=== PATIENT | male | born 1965 | race Caucasian/White ===

== ENCOUNTER 2017-04-25 13:02 | Outpatient (CLI) | payer MEDICARE, MEDICAID ==
--- NOTE | 2017-04-25 15:24 | RAD ---
3 VIEWS CERVICAL SPINE: Date: 04/25/17 HISTORY: Cervical radiculopathy. This is follow-up post surgery. FINDINGS: C1 to the cervicothoracic junction is seen on the lateral view. There are postsurgical changes relat ed to anterior cervical fusion with anterior plate and screws transfixing C4-5 and C5-6 levels with associated intradiscal prostheses. There is suggestion of subtle lucency within the most anterior as pect of the C6 vertebral body adjacent to the screws which may be related to the screws and artifact ual as opposed to true loosening. However, given this is a recent postoperative evaluation, continue d follow-up can be performed. No definite hardware complication is seen. There are degenerative odom ges in the cervical spine at the C6-7 and C7-T1 levels with narrowing of the intervertebral disc spa donya and osteophyte formation. No fracture or subluxation is seen. There is minimal soft tissue swell ing anterior to the level of the plate and screws, probably related to postoperative change. IMPRESSION: Postoperative changes related to anterior cervical fusion at the C4 through C6 level. There is mild prevertebral soft tissue swelling anterior to the level of the metallic plate, which is probably rel ated to the recent postsurgical changes. POS: [facility]
== END 2017-04-25 13:03 | disposition home or self-care (01) ==
LOC: TBSIIMAG 13:02
PROVIDERS: ATTEND Neurological Surgery
DX: M54.12 Radiculopathy, cervical region (principal); Z98.1 Arthrodesis status
CPT/HCPCS: 72040

== ENCOUNTER 2017-06-29 09:51 | Emergency (ER) | payer MEDICARE, MEDICAID ==
[2017-06-29 10:22] LABS: #Basophils 0.1 thou/uL (0.0-0.2); #Eosinphils 0.3 thou/uL (0.0-0.7); #Lymphocytes 2.4 thou/uL (1.20-3.40); #Monocytes 0.7 thou/uL (0.11-0.59); #Neutrophils 6.9 thou/uL (1.40-6.50); %Basophils 0.7 % (0.0-1.0); %Eosinophils 2.6 % (0.0-10.0); %Lymphocytes 23.2 % (21.0-51.0); %Monocytes 6.9 % (0.0-10.0); Hematocrit 47.8 % (42.0-52.0); Mean Platelet Volume 6.7 fL (7.4-10.4); Red Blood Cell (RBC) Count 4.95 mill/uL (4.70-6.10); White Blood Cell (WBC) Count 10.4 thou/uL (4.8-10.8)
--- NOTE | 2017-06-29 10:41 | RAD ---
CHEST ONE VIEW: History: Chest pain. Comparison: None. FINDINGS: Lungs are clear. No pneumothorax or effusion. Cardiac silhouette and mediastinal contours are within normal limits. IMPRESSION: No acute intrathoracic abnormality. POS: [facility]
[2017-06-29 10:52] LABS: ALT (SGPT) 20 U/L (8-55); AST (SGOT) 17 U/L (5-34); Alkaline Phosphatase 74 U/L (40-150); Anion Gap 11 mmol/L (10-20); BUN (Urea Nitrogen) 16 mg/dL (8.9-20.6); Bilirubin, Total 0.2 mg/dL (0.2-1.2); CK (CPK) 89 U/L (30-200); Calc. Creatinine Clearance 0 mL/min (70-130); Calcium 10.4 mg/dL (7.8-10.44); Carbon Dioxide 25 mmol/L (22-29); Chloride 107 mmol/L (98-107); Estimated GFR-MDRD 89; Globulin 3.1 g/dL (2.4-3.5); Lipase 26 U/L (8-78); Protein, Total 7.4 g/dL (6.0-8.3)
[2017-06-29 10:55] LABS: Troponin I 0.011 ng/mL (< 0.028)
--- NOTE | 2017-06-29 11:00 | CT ---
CT BRAIN WITHOUT CONTRAST: HISTORY: Headache, pain. FINDINGS: Noncontrast enhanced CT images of the brain obtained. CT images demonstrate previous right frontoparietal craniotomy changes. No evidence of acute intracranial masses, hemorrhages, strokes, or contusions seen. Ventricles are o f normal size. IMPRESSION: No evidence of acute intracranial abnormality is seen. POS: [facility]
[2017-06-29 12:59] LABS: Troponin I Less than 0.010 ng/mL (< 0.028)
[2017-06-29] MEDS ORDERED: cloNIDine 0.1 MG TAB ONE (13:07)
== END 2017-06-29 13:46 | disposition home or self-care (01) ==
LOC: ERS 09:51
DX: R07.9 Chest pain, unspecified (principal); I10 Essential (primary) hypertension; F32.9 Major depressive disorder, single episode, unspecified; F17.210 Nicotine dependence, cigarettes, uncomplicated; Z79.891 Long term (current) use of opiate analgesic
CPT/HCPCS: 70450; 71010; 80053; 82553; 83690; 84484; 85025; 93005; 94760

== ENCOUNTER 2017-07-24 10:24 | Outpatient (CLI) | payer MEDICARE, MEDICAID ==
--- NOTE | 2017-07-24 12:46 | MRI ---
BRAIN MRI WITHOUT CONTRAST: CLINICAL HISTORY: Frequent headaches. COMPARISON: Reference is made to 06/29/[address] FINDINGS: There is normal size of the ventricular system. MR appearance of plagiocephaly is suggested, althoug h this should be further evaluated with clinical exam. There are mild signal abnormalities of the bi lateral cerebral white matter and within the region of the corpus callosum. No intracranial hemorrha gic susceptibility. No acute territorial infarction. There is inferior location of the cerebellar t onsils which maintain a rounded morphology compatible with mild cerebellar tonsillar ectopia. The sk ull base flow voids are patent. IMPRESSION: 1. Nonspecific signal abnormalities within the cerebral hemispheres as well as the corpus callosum. This may be on the basis of demyelinating process such as multiple sclerosis. Followup with contras eulogio imaging may be performed for further assessment. 2. MR evidence to indicate plagiocephaly. 3. Mild cerebellar tonsillar ectopia. POS: [facility]
== END 2017-07-24 10:25 | disposition home or self-care (01) ==
LOC: TBSIIMAG 10:24
PROVIDERS: ATTEND Student in an Organized Health Care Education/Training Program
DX: S09.90XA Unspecified injury of head, initial encounter (principal); R51 Headache; I10 Essential (primary) hypertension; Q04.8 Other specified congenital malformations of brain
CPT/HCPCS: 70551

== ENCOUNTER 2017-08-03 09:53 | Outpatient (CLI) | payer MEDICARE, MEDICAID ==
[2017-08-03] MEDS ORDERED: Gadobenate Dimeglumine 529 MG/1 ML (20ML VIAL) ONE (14:02)
== END 2017-08-03 09:54 | disposition home or self-care (01) ==
LOC: BICMRI 09:53
PROVIDERS: ATTEND Student in an Organized Health Care Education/Training Program
DX: G37.9 Demyelinating disease of central nervous system, unspecified (principal); R51 Headache; R93.0 Abnormal findings on diagnostic imaging of skull and head, not elsewhere classified; M47.892 Other spondylosis, cervical region; Q75.0 Craniosynostosis
CPT/HCPCS: 70553; 72156; A9579

== ENCOUNTER 2017-11-12 11:30 | Emergency (ER) | payer MEDICARE, MEDICAID ==
[2017-11-12] MEDS ORDERED: Morphine 4 MG/ML VIAL ONE (13:09)
[2017-11-12] MEDS ORDERED: methylPREDNISolone Sod Succ/PF 125 MG/2 ML VIAL ONE (13:09)
== END 2017-11-12 14:10 | disposition home or self-care (01) ==
LOC: ERS 11:30
DX: M54.5 Low back pain (principal); I10 Essential (primary) hypertension; F32.9 Major depressive disorder, single episode, unspecified; F17.210 Nicotine dependence, cigarettes, uncomplicated; Z79.899 Other long term (current) drug therapy; X50.9XXA Other and unspecified overexertion or strenuous movements or postures, initial encounter; Y99.0 Civilian activity done for income or pay
CPT/HCPCS: 96372; J2270; J2930

== ENCOUNTER 2017-11-13 10:43 | Outpatient (CLI) | payer MEDICARE, MEDICAID ==
--- NOTE | 2017-11-13 13:30 | MRI ---
LUMBAR SPINE MRI WITHOUT IV CONTRAST: Date: 11/13/17 HISTORY: 51-year-old male with history of radiculopathy of the lumbosacral region. Bilateral leg and back pain . COMPARISON: 08/31/16. TECHNIQUE: Multiplanar, multisequence MRI examination of the lumbar spine is performed. FINDINGS: Stable bilateral renal T2 nodular hyperintensities, evidence for bilateral renal cysts. Conus medulla ris region is unremarkable, terminating at L1. There are generalized disc desiccation changes and lig ament and facet hypertrophic changes. At L1-L2, there is no evidence for canal or foraminal stenosis. There is some focal T1 hypointensity and T2 hyperintensity in the right superior end plate region of L2, evidence for some new Type I end plate changes. Very mild disc bulging at L2-L3 without significant stenosis. At L3-L4, there is some disc bulging with mild lateral recess stenosis, without significant foraminal stenosis. At L4-L5, there is more marked disc bulging somewhat more focally prominent in the right paracentral region with moderate central canal and lateral recess stenosis, and moderate bilateral foraminal sten osis. At L5-S1, there is a left-sided conjoined nerve root. No significant canal or foraminal stenosis. IMPRESSION: New small focus of Type I end plate changes involving the right superior aspect of the L2 superior en d plate. Moderate canal and lateral recess stenosis, worse on the right side at L4-L5. Other findings as above. POS: [facility]
== END 2017-11-13 10:44 | disposition home or self-care (01) ==
LOC: MRI 10:43
PROVIDERS: ATTEND Neurological Surgery
DX: M51.16 Intervertebral disc disorders with radiculopathy, lumbar region (principal); M48.061 Spinal stenosis, lumbar region without neurogenic claudication; M99.83 Other biomechanical lesions of lumbar region
CPT/HCPCS: 72148

== ENCOUNTER 2018-02-07 10:09 | Inpatient (IN) | payer MEDICARE, MEDICAID ==
[2018-02-07 10:52] LABS: #Basophils 0.1 thou/uL (0.0-0.2); #Eosinphils 0.3 thou/uL (0.0-0.7); #Monocytes 0.8 thou/uL (0.11-0.59); %Basophils 0.6 % (0.0-1.0); %Eosinophils 3.4 % (0.0-10.0); %Lymphocytes 24.4 % (21.0-51.0); %Monocytes 10.1 % (0.0-10.0); %Neutrophils 61.5 % (42.0-75.0); Mean Corpuscular HGB CONC 35.2 g/dL (32.0-36.0); Mean Corpuscular Hemoglobin 32.3 pg (27.0-31.0); Mean Corpuscular Volume 91.7 fL (78.0-98.0); Mean Platelet Volume 6.2 fL (7.4-10.4); Platelet Count 217 thou/uL (130-400); RBC Distribution Width 11.7 % (11.5-14.5); Red Blood Cell (RBC) Count 4.95 mill/uL (4.70-6.10); White Blood Cell (WBC) Count 8.1 thou/uL (4.8-10.8)
[2018-02-07 10:59] LABS: Bilirubin Negative (Negative); Blood, Urine Negative (Negative); Clarity CLEAR (Clear); Glucose, Urine (Dipstick) Negative (Negative); Leukocyte Negative (Negative); Nitrite Negative (Negative); Protein, Urine (Dipstick) Negative (Neg-Trace); Specific Gravity, Urine 1.011 (1.002-1.036)
[2018-02-07 11:19] LABS: ALT (SGPT) 66 U/L (8-55); AST (SGOT) 28 U/L (5-34); Acetaminophen Less than 6.0 mcg/mL (10.0-30.0); Albumin 4.4 g/dL (3.5-5.0); Alcohol Less than 10 mg/dL (Less than 10); Alkaline Phosphatase 81 U/L (40-150); Anion Gap 12 mmol/L (10-20); BUN (Urea Nitrogen) 13 mg/dL (8.9-20.6); Bilirubin, Total 0.7 mg/dL (0.2-1.2); Calc. Creatinine Clearance 0 mL/min (70-130); Calcium 9.8 mg/dL (7.8-10.44); Carbon Dioxide 25 mmol/L (22-29); Chloride 106 mmol/L (98-107); Estimated GFR-MDRD 72; Globulin 3.3 g/dL (2.4-3.5); Glucose 106 mg/dL (70-105); Potassium 4.1 mmol/L (3.5-5.1); Protein, Total 7.7 g/dL (6.0-8.3); Salicylate Less than 8.0 mg/dL (15.0-30.0); Sodium 139 mmol/L (136-145)
[2018-02-07 11:20] LABS: Amphetamine Not Detected (NotDetected); Barbiturates Screen Not Detected (NotDetected); Benzodiazepine Screen Not Detected (NotDetected); Cocaine Metabolite Screen Detected (NotDetected); Medtox Control Line Valid? VALID (VALID); Medtox Reader # READER 1; Methadone Not Detected (NotDetected); Methamphetamine Detected (NotDetected); Opiate Screen Not Detected (NotDetected); Oxycodone Screen Not Detected (NotDetected); Phencyclidine (PCP) Not Detected (NotDetected); THC/Cannabinoid Screen Not Detected (NotDetected); Tricyclic Screen Detected (NotDetected)
--- NOTE | 2018-02-07 11:21 | CT ---
CT HEAD NONCONTRAST: CLINICAL INDICATIONS: Altered mental status. COMPARISON: Reference made to 06/29/2017. FINDINGS: Patient motion is present during the exam, which degrades image quality and thus limits assessment. Evidence of a prior right-sided craniotomy. There is parenchymal volume loss. This does result in m ild ex vacuo dilatation of the ventricular system. There is a stable linear oriented focus of gliosi s involving the posterior left frontal lobe, as well as hypoattenuation of the right central semioval e, indicating mild chronic ischemic disease. No intracranial hemorrhage, mass effect, or midline alex ft. No significant interval detrimental change, comparing to the 06/29/2017 exam. IMPRESSION: Stable examination without acute intracranial abnormality identified. POS: [facility]
--- NOTE | 2018-02-07 11:27 | RAD ---
PORTABLE UPRIGHT CHEST 1 VIEW: Date: 02/07/18 HISTORY: 52-year-old male with history of altered mental status. FINDINGS: Monitor leads overlie the chest. No confluent pneumonia, overt edema, or pleural effusion. Anterior c ervical fusion changes. IMPRESSION: No significant acute intrathoracic disease. POS: [facility]
[2018-02-07 20:11] VITALS: BMI 29.9
[2018-02-07] MEDS ORDERED: Ondansetron HCl/PF 4 MG/2 ML Vial IVP PRN ×2 (20:11→20:15)
[2018-02-07] MEDS ORDERED: Ondansetron ODT 4 MG TAB SL PRN (20:11)
[2018-02-07] MEDS ORDERED: Acetaminophen 325 MG TAB PO PRN (20:11)
[2018-02-07] MEDS ORDERED: cloNIDine 0.1 MG TAB PO PRN (20:15)
[2018-02-07] MEDS ORDERED: Ondansetron ODT 4 MG TAB PO PRN (20:15)
[2018-02-07] MEDS ORDERED: hydrALAZINE 20 MG/ML VIAL SLOW IVP PRN (20:15)
[2018-02-07] MEDS ORDERED: Acetaminophen 500 MG TAB PO PRN (20:15)
[2018-02-07] MEDS ORDERED: Lorazepam 2 MG/ML VIAL SLOW IVP PRN (20:15)
[2018-02-07] MEDS: Sodium Chloride 0.9% 1,000 ML IV SCH (21:26)
[2018-02-07] MEDS: Famotidine/PF 20 mg/2ml Vial SLOW IVP SCH (22:15)
--- NOTE | 2018-02-08 00:24 | HP ---
DATE OF ADMISSION: 02/07/2018 PRIMARY CARE PHYSICIAN: Bárbara james. PRIMARY PSYCHIATRIST: Dr. Luis E Alatorre in [place], [place]. CHIEF COMPLAINT: Altered mental status and unresponsiveness. HISTORY OF PRESENT ILLNESS: This is a 52-year-old male who presents to [facility] in transport by EMS personnel after family members found the patient down at home. The patie nt apparently was last seen normal in the last 24 hours; however, has a significant history of drug a buse including cocaine, marijuana, and methamphetamines. The patient apparently was recently dischar ged from inpatient psychiatric care in detox in the [facility] apparently having a relapse according to family members relaying the information to the emergency room personnel. The patient currently o btunded and unable to provide any significant history and most of the history is obtained after revie w of electronic medical records and discussions with the ER attending. The patient presented to the emergency room and noted to be unsteady on his feet, somnolent and only responding to painful stimuli . The patient would open his eyes briefly to his name. In the emergency room, the patient underwent general evaluation including CT of the brain showing no acute intracranial process. The patient rec eived IV fluids, oxygen supplementation and placement of a nasal trumpet. The patient was referred t o the Hospitalist Service for further evaluation. PAST MEDICAL HISTORY: 1. Polysubstance abuse. 2. Cocaine/methamphetamine abuse. 3. Tobacco abuse. 4. Chronic back pain with degenerative joint disease of the lumbar spine. 5. Hypertension. 6. Peripheral neuropathy. PAST SURGICAL HISTORY: 1. Status post eye surgery. 2. Status post plastic plate placement in the scalp. 3. Status post tonsillectomy. 4. Status post cervical spine surgery. CURRENT MEDICATIONS: 1. Amitriptyline 100 mg p.o. at bedtime. 2. Lisinopril 10 mg p.o. daily. 3. Hydroxyzine 25 mg 1-2 tablets p.o. t.i.d. 4. Gabapentin 600 mg 1-1/2 tabs p.o. q.6 hours p.r.n. 5. Strattera 80 mg 1 tab p.o. q.a.m. ALLERGIES: No known drug allergies. FAMILY HISTORY: No inheritable diseases per family report. SOCIAL HISTORY: [facility] [place] [facility] [place] Smokes up to 1-1/2 packs of cigarettes p er day. Positive cocaine, marijuana, and methamphetamine abuse. Recent discharge from inpatient det oxification in [place], [place]. REVIEW OF SYSTEMS: Unobtainable as the patient currently is obtunded and unresponsive. PHYSICAL EXAMINATION: VITAL SIGNS: On admission, blood pressure 122/93, pulse 84, respiratory rate 20, temperature 97.3 de grees Fahrenheit, O2 saturation 95% on room air. GENERAL APPEARANCE: This is a disheveled appearing 52-year-old male, somnolent on the hospital bed w ith nasal trumpet in place. HEENT: Pupils are minimally reactive to light and accommodation. Left medial eye deviation. Opens eyes to name and tracks for 1-2 seconds falling asleep. No conjunctival injection. Nares patent. [place] trumpet and left naris. OP with dry oral mucosa. Multiple missing teeth. Nicotine staining on the tongue. NECK: Supple, no cervical adenopathy, no thyromegaly, no carotid bruits, no JVD appreciated. Cervic al spine with full active and passive range of motion. No meningeal signs appreciated. CHEST: Lungs are clear to auscultation bilaterally. CARDIOVASCULAR: S1, S2, without noted murmur, rub or gallop. ABDOMEN: Rounded, soft, nontender, nondistended. Bowel sounds are positive in all four quadrants. There is no hepatosplenomegaly, no abdominal bruits, no rebound or guarding appreciated. EXTREMITIES: Warm and dry with fair turgor. No clubbing, cyanosis or asymmetric edema appreciated. Pulses palpable distally at the dorsalis pedis, posterior tibial, and popliteal arteries bilaterally . Capillary refill less than 2 seconds. NEUROLOGIC: Opens eyes to direct engagement and name briefly. Localizes to painful stimulus. Falls asleep quickly. Does not follow complex commands. Not observed ambulatory. PERTINENT LABORATORY AND X-RAY FINDINGS: Basic metabolic profile within normal limits. Calcium 9.8, AST 28, ALT of 66, alkaline phosphatase 81, total CK 144, albumin 4.4. CBC showed a white blood florian l count 8.1, hemoglobin 16, hematocrit 45, platelet count 217 with normal differential. Urinalysis n egative. Urine drug screen dated 02/07/2018. Positive for tricyclics, methamphetamines and cocaine. Plasma alcohol level less than 10. CT of the brain without contrast dated 02/07/2018 showed no acu te intracranial process. Portable chest x-ray dated 02/07/2018 showed no acute cardiopulmonary proce ss. EKG dated 02/07/2018 by my interpretation shows sinus mechanism with heart rates in the 90s. No rmal R-wave progression noted in the precordial leads. Normal axis. No acute ST-T wave changes appr eciated. ASSESSMENT AND PLAN: 1. Acute toxic metabolic encephalopathy. Multifactorial given patient's polysubstance abuse includi ng cocaine and methamphetamines. We will continue general supportive measures. IV fluids with cecilio l saline at 125 mL per hour. Continue supportive management and monitor for improvement in mental st atus. 2. Polysubstance abuse. Continue supportive management as outlined in #1. [facility] consultation when p atient clinically stabilizes. 3. Dehydration. We will continue intravenous normal saline at 125 mL per hour. Encourage increased free water intake when tolerating p.o. 4. Hypertension. We will resume home antihypertensive regimen once home dosing is confirmed. Cloni dine and hydralazine p.r.n. 5. Prophylaxis. Sequential compression devices while in bed. Pepcid 20 mg IV q.12 hours. [facility] felipa luation when clinically stabilizing. 6. Code status is FULL. Surrogate medical decision maker not identified.
[2018-02-08] MEDS: Sodium Chloride 0.9% 1,000 ML IV SCH (04:41)
[2018-02-08 06:40] LABS: ALT (SGPT) 47 U/L (8-55); AST (SGOT) 18 U/L (5-34); Albumin 3.9 g/dL (3.5-5.0); Alkaline Phosphatase 78 U/L (40-150); Anion Gap 14 mmol/L (10-20); BUN (Urea Nitrogen) 12 mg/dL (8.9-20.6); Bilirubin, Total 0.5 mg/dL (0.2-1.2); Calc. Creatinine Clearance 94 mL/min (70-130); Calcium 9.6 mg/dL (7.8-10.44); Carbon Dioxide 24 mmol/L (22-29); Chloride 109 mmol/L (98-107); Estimated GFR-MDRD 72; Glucose 89 mg/dL (70-105); Magnesium 2.1 mg/dL (1.6-2.6); Mean Corpuscular HGB CONC 33.9 g/dL (32.0-36.0); Mean Corpuscular Hemoglobin 31.4 pg (27.0-31.0); Mean Corpuscular Volume 92.4 fL (78.0-98.0); Mean Platelet Volume 6.3 fL (7.4-10.4); Platelet Count 245 thou/uL (130-400); Potassium 4.1 mmol/L (3.5-5.1); Protein, Total 6.9 g/dL (6.0-8.3); RBC Distribution Width 11.6 % (11.5-14.5); Red Blood Cell (RBC) Count 4.79 mill/uL (4.70-6.10); Sodium 143 mmol/L (136-145); White Blood Cell (WBC) Count 11.3 thou/uL (4.8-10.8)
[2018-02-08 07:42] LABS: Band 3 % (5-11); Eosinophils 2 % (0-10); Lymphocytes 29 % (21-51); MDiff Complete? YES; Monocytes 4 % (0-10); Neutrophil 60 % (42-75); RBC Morphology Normal; Reactive Lymphocytes 2 % (0-10)
[2018-02-08] MEDS: Famotidine/PF 20 mg/2ml Vial SLOW IVP SCH (09:59)
--- NOTE | 2018-02-08 10:55 | PDOC.PN ---
- Subjective Encounter Start Date: 02/08/18 Encounter Start Time: 10:10 Subjective: f/u for polysubstance abuse and associated encephalopathy. More awake and -: alert this am. Requesting to eat. States completing inpt psych stay of 20+ -: days. - Objective Resuscitation Status: Resuscitation Status FULL:Full Resuscitation MAR Reviewed: Yes Vital Signs & Weight: Vital Signs (12 hours) Temp Pulse Resp BP BP Pulse Ox 02/08/18 07:53 98.2 F 80 18 154/93 H 154/93 H 95 02/08/18 04:08 98.4 F 86 20 154/96 H 94 L Weight Weight 180 lb 3.2 oz I&O: 02/07/18 02/08/18 02/09/18 06:59 06:59 06:59 Intake Total 10 Output Total 600 Balance -590 Result Diagrams: 02/08/18 05:54 02/08/18 05:54 Additional Labs: Laboratory Tests 02/08/18 05:54 TSH 3rd Generation 0.6468 EKG Reviewed by me: Yes (Tele - SR) Phys Exam - Physical Examination Constitutional: NAD no nasal septal erosions, extensive dental HEENT: PERRLA, sclera anicteric Neck: no nodes, no JVD, supple, full ROM Respiratory: no wheezing, no rales, no rhonchi, clear to auscultation bilateral Cardiovascular: RRR, no significant murmur, no rub, gallop Gastrointestinal: soft, non-tender, no distention, positive bowel sounds Musculoskeletal: no edema, pulses present Neurological: normal sensation, moves all 4 limbs Psychiatric: normal affect, A&O x 3 Skin: no rash, normal turgor, cap refill <2 seconds Dx/Plan (1) Toxic metabolic encephalopathy Code(s): G92 - TOXIC ENCEPHALOPATHY Status: Acute Comment: Secondary to polysubstance abuse, improved currently, supportive mgmt (2) Polysubstance abuse Code(s): F19.10 - OTHER PSYCHOACTIVE SUBSTANCE ABUSE, UNCOMPLICATED Status: Acute Comment: + meth/cocaine, [facility] consult for detox resources (3) Suicidal ideation Code(s): R45.851 - SUICIDAL IDEATIONS Status: Acute Comment: [facility] consult for inpt psych placement, [facility] (4) Dehydration Code(s): E86.0 - DEHYDRATION Status: Acute Comment: Improved, decrease IVF 75ml/h, encourage po free-H2O intake (5) HTN (hypertension) Code(s): I10 - ESSENTIAL (PRIMARY) HYPERTENSION Status: Chronic Qualifiers: Hypertension type: essential hypertension Qualified Code(s): I10 - Essential (primary) hypertension Comment: Resume Lisinopril, serial monitoring (6) Depression Code(s): F32.9 - MAJOR DEPRESSIVE DISORDER, SINGLE EPISODE, UNSPECIFIED Status : Chronic Comment: Resume Strattera, Amitryptiline - Plan delinquency prevention social worker, out of bed/ambulate, DVT proph w/SCDs Stable overall -: Decrease IVF's 75ml/h -: Pepcid 20mg BID -: MR consult for placement options -: AM lab: CBC * .
[2018-02-08] MEDS ORDERED: Sodium Chloride 0.9% 1,000 ML IV SCH (10:59)
[2018-02-08] MEDS ORDERED: Gabapentin 300 MG CAP PO PRN (11:00)
[2018-02-08] MEDS ORDERED: Famotidine 20 MG TAB PO SCH ×2 (12:00→21:00)
[2018-02-08 16:55] VITALS: BP 147/97; TEMP 98
[2018-02-08] MEDS ORDERED: Amitriptyline HCl 100 MG TAB PO SCH (21:00)
--- NOTE | 2018-02-09 01:05 | DIS ---
DATE OF ADMISSION: 02/07/2018 DATE OF DISCHARGE: 02/08/2018 DISCHARGE DIAGNOSES: 1. Toxic metabolic encephalopathy, secondarily to #2. 2. Polysubstance abuse, including cocaine and methamphetamines. 3. Suicidal ideation. 4. Dehydration, resolved. 5. Hypertension, stable. 6. Depression, severe. CONSULTATIONS: [facility] Services. PERTINENT LABORATORY AND X-FINDINGS: Basic metabolic profile showed creatinine ranged between 1.08-1 .09, estimated GFR 72. Magnesium 2.1. LFTs showed AST ranged between 18-28, ALT ranged between 47-6 6. Total CK 144, TSH 0.65. CBC showed a white blood cell count ranged between 8.1-11.3. Urinalysis negative. Urine drug screen dated 02/07/2018, positive for tricyclics, methamphetamines and cocaine . Plasma alcohol level less than 10. CT of the brain dated 02/07/2018 showed no acute intracranial process. Portable chest x-ray dated 02/07/2018 showed no acute cardiopulmonary process. HOSPITAL COURSE: The patient was admitted to the telemetry unit after initially presenting obtunded with altered mentation in the context of polysubstance abuse with cocaine and methamphetamines by uri ne drug screen analysis. The patient with longstanding history of polysubstance abuse, placed on IV fluids and monitored on the telemetry unit. Screening metabolic survey was essentially unremarkable except for urine drug screen as stated previously. The patient received general supportive measures and clinically improved within 24 hours. The patient was verbalizing a suicidal intent and ideation that prompted this admission. The patient was evaluated by the [facility] Service and deemed an appropriat e candidate for inpatient psychiatric care. The patient has been approved to transfer to [facility] and will transfer on 02/08/2018. I have examined the patient at the time of discharg e and discussed disposition planning, at which point the patient verbalized understanding and agreeme nt. DISCHARGE MEDICATIONS: 1. Amitriptyline 100 mg p.o. at bedtime. 2. Strattera 80 mg p.o. q.a.m. 3. Gabapentin 600 mg p.o. q.i.d. p.r.n. 4. Hydroxyzine 25 mg 1-2 tabs p.o. t.i.d. p.r.n. 5. Lisinopril 10 mg one tab p.o. daily. FOLLOWUP: The patient will follow up with [facility] on 02/08/2018. CONDITION ON DISCHARGE: Fair. ACTIVITY: Ad afua. DIET: Regular. CODE STATUS: FULL. DISPOSITION: Transfer to [facility] on 02/08/2018.
[2018-02-09] MEDS ORDERED: ATOMOXETINE HCL 80 MG PO SCH (09:00)
[2018-02-09] MEDS ORDERED: Lisinopril 10 MG TAB PO SCH (09:00)
== END 2018-02-08 16:25 | disposition short-term general hospital (02) | DRG 917 ==
LOC: ERS 10:09 → 2NO 19:54 → INTOOBSV 19:54 → OBSVTOIN 02-08 10:12
PROVIDERS: ADMIT Family Medicine; ATTEND Family Medicine
DX: T40.5X1A Poisoning by cocaine, accidental (unintentional), initial encounter (principal); G92 Toxic encephalopathy; R45.851 Suicidal ideations; F14.10 Cocaine abuse, uncomplicated; F12.10 Cannabis abuse, uncomplicated; F15.10 Other stimulant abuse, uncomplicated; F17.210 Nicotine dependence, cigarettes, uncomplicated; G89.29 Other chronic pain; M47.9 Spondylosis, unspecified; I10 Essential (primary) hypertension; G62.9 Polyneuropathy, unspecified; E86.0 Dehydration; F32.9 Major depressive disorder, single episode, unspecified
CPT/HCPCS: 36415; 36416; 51701; 70450; 71045; 80053; 80306; 80307; 81003; 82550; 83735; 84443; 85007; 85025; 85027; 89220; 93005; 94760; 96360; S0028

== ENCOUNTER 2019-09-30 09:09 | Outpatient (CLI) | payer MEDICARE, MEDICAID ==
--- NOTE | 2019-09-30 09:21 | RAD ---
XR Cerv Sp Ap Lat STANDARD HISTORY: Neck pain FINDINGS: There are postop changes of anterior spinal fusion plate and screws an intradiscal prostheses at C4-5 -6 levels in good position and alignment. The metallic hardware is intact. Degenerative changes are seen. No acute fracture or subluxation is identified.
--- NOTE | 2019-10-01 07:20 | RAD ---
XR Shoulder Lt 3 View STANDARD HISTORY: Left rib pain FINDINGS: No fracture or dislocation is identified. There are mild degenerative changes in the acromioclavicula r joint
== END 2019-09-30 09:10 | disposition home or self-care (01) ==
LOC: RAD-FRANK 09:09
PROVIDERS: ATTEND Internal Medicine
DX: M54.2 Cervicalgia (principal); M25.512 Pain in left shoulder
CPT/HCPCS: 72040

== ENCOUNTER 2020-04-30 05:07 | Emergency (ER) | payer MEDICARE, MEDICAID ==
[2020-04-30] MEDS ORDERED: Ketorolac Tromethamine 30 MG/ML VIAL ONE (05:23)
[2020-04-30 06:47] LABS: Bilirubin Negative (Negative); Blood, Urine Negative (Negative); Clarity Clear (Clear); Glucose, Urine (Dipstick) Normal (Negative); Ketone, Urine Negative (Negative); Leukocyte Negative Leu/uL (Negative); Nitrite Negative (Negative); Protein, Urine (Dipstick) Negative (Neg-Trace); Urobilinogen Normal mg/dL (Less than 2)
--- NOTE | 2020-04-30 08:04 | CT ---
PRELIMINARY REPORT/.[facility]/EMERGENCY AFTER HOURS PROCEDURE EXAM: CT Abdomen and Pelvis Without Intravenous Contrast CLINICAL HISTORY: Patient brought to the ER by EMS with 2 to 3-week history of low back pain and left lower quadrant pa in. He has had nausea but no vomiting. He denies change in bowel habits. He has had no urinary symptoms and no fever. Hx of herniated disc and sciatica TECHNIQUE: Axial computed tomography images of the abdomen and pelvis without intravenous contrast. CONTRAST: None. COMPARISON: None provided. FINDINGS: LUNG BASES: No basilar airspace consolidation or pleural effusion. LIVER: Unremarkable. GALLBLADDER AND BILE DUCTS: Unremarkable. No calcified stone. No ductal dilation. PANCREAS: Unremarkable. SPLEEN: Unremarkable. ADRENAL GLANDS: 2.5 cm left adrenal adenoma noted incidentally. KIDNEYS, URETERS, AND BLADDER: Unremarkable. No hydronephrosis or nephrolithiasis. No ureteral or bladder calculi. STOMACH AND BOWEL: Evaluation of the GI tract is limited due to lack of contrast and limited distention of the GI tract. No obvious, acute GI abnormalities are identified. Diverticulosis without evidence of diverticulitis. APPENDIX: Normal appendix. PERITONEUM: No free fluid. No free air. LYMPH NODES: No lymphadenopathy. VASCULATURE: No aortic aneurysm. ABDOMINAL WALL AND SOFT TISSUES: Small fat-containing inguinal hernia on the right. BONES: No fracture or suspicious osseous abnormality. IMPRESSION: No acute intra-abdominal or pelvic abnormality. ELECTRONICALLY SIGNED BY: Elbert Chu MD Apr 30, 2020 5:50:23 AM CDT This report is intended for review by the ordering physician only, in accordance of law. If you recei ve this report in error, please call [facility] at [phone]. FINAL REPORT EMERGENT AFTER HOURS NONCONTRAST CT ABDOMEN AND PELVIS: HISTORY: 2-3 week history of low back pain and left lower quadrant abdominal pain. Nausea. COMPARISON: None. IMPRESSION: 1. Tiny nonspecific 3-4 mm pulmonary nodule in the lingula. 2. No renal or ureteral calculi are seen bilaterally. 3. Slightly lobulated contour involving the lateral aspect midportion left kidney. A discrete lesion is unable to be delineated on this nonenhanced CT exam. 4. 2 cm hypodense left adrenal lesion demonstrating characteristics compatible with an adrenal adenom a. 5. Colonic diverticulosis. 6. Fat-containing right inguinal canal. 7. No acute findings are seen in the abdomen or pelvis on this nonenhanced CT exam. 8. Findings are in agreement with preliminary report by [facility]. Transcribed Date/Time: 04/30/2020 8:09 AM
== END 2020-04-30 07:19 | disposition home or self-care (01) ==
LOC: ERS 05:07
DX: R10.32 Left lower quadrant pain (principal); M54.5 Low back pain; I10 Essential (primary) hypertension; F32.9 Major depressive disorder, single episode, unspecified; F17.210 Nicotine dependence, cigarettes, uncomplicated; Z79.899 Other long term (current) drug therapy
CPT/HCPCS: 74176; 81003; J1885

== ENCOUNTER 2020-04-30 15:47 | Emergency (ER) | payer MEDICARE, MEDICAID ==
[~2020-04-30 15:47] MED LIST: Iopamidol-370 76% 500 ML 1 ML ONE
[2020-04-30 16:44] LABS: #Basophils 0.1 thou/uL (0.0-0.2); #Eosinphils 0.4 thou/uL (0.0-0.7); #Lymphocytes 2.9 thou/uL (1.20-3.40); #Monocytes 0.8 thou/uL (0.11-0.59); #Neutrophils 3.9 thou/uL (1.40-6.50); %Eosinophils 4.7 % (0.0-10.0); %Lymphocytes 36.2 % (21.0-51.0); %Monocytes 10.1 % (0.0-10.0); Hemoglobin 14.1 g/dL (14.0-18.0); Mean Corpuscular HGB CONC 33.9 g/dL (32.0-36.0); Mean Corpuscular Hemoglobin 31.8 pg (27.0-31.0); Mean Corpuscular Volume 93.6 fL (78.0-98.0); Mean Platelet Volume 7.3 fL (7.4-10.4); Platelet Count 273 thou/uL (130-400); RBC Distribution Width 11.8 % (11.5-14.5); Red Blood Cell (RBC) Count 4.46 mill/uL (4.70-6.10)
[2020-04-30 17:07] LABS: ALT (SGPT) 28 U/L (8-55); AST (SGOT) 20 U/L (5-34); Albumin 3.5 g/dL (3.5-5.0); Alkaline Phosphatase 59 U/L (40-110); Anion Gap 13 mmol/L (10-20); BUN (Urea Nitrogen) 10 mg/dL (8.4-25.7); Bilirubin, Total 0.2 mg/dL (0.2-1.2); Calc. Creatinine Clearance 0 mL/min (70-130); Calcium 9.1 mg/dL (7.8-10.44); Carbon Dioxide 21 mmol/L (22-29); Chloride 108 mmol/L (98-107); Estimated GFR-MDRD Greater than 90; Glucose 116 mg/dL (70-105); Lipase 35 U/L (8-78); Potassium 4.2 mmol/L (3.5-5.1); Protein, Total 6.5 g/dL (6.0-8.3); Sodium 138 mmol/L (136-145)
--- NOTE | 2020-04-30 18:10 | CT ---
CT OF THE ABDOMEN AND PELVIS WITH IV CONTRAST INDICATION: Abdominal pain COMPARISON: Prior CT the abdomen and pelvis dated April 30, 2020 at 5:29 AM FINDINGS: ABDOMEN: Lung bases: Clear Liver: No focal lesion. Gallbladder: Normal appearing. Pancreas: Normal. Adrenal glands: Stable left adrenal adenoma. Right adrenal gland is normal-appearing. Spleen: Normal. Kidneys and ureters: The hypodense lesion seen within the left mid kidney on the prior examination de monstrates areas of internal septal enhancement and is consistent with a complex cyst. Right kidney appears within normal limits. Vasculature: There are mild vascular calcifications seen involving the visualized vasculature. Lymph nodes:No lymphadenopathy. Free fluid in abdomen:No free fluid is evident. PELVIS: Small and large bowel: There are scattered colonic diverticula. Small bowel is of normal caliber. Appendix:Normal Bladder: Normal. Rectal and perirectal soft tissues:Normal. Reproductive structures: Normal. Free fluid in pelvis: No free fluid is evident. Lymphadenopathy pelvis: No lymphadenopathy is evident. Osseous structures: No acute osseous abnormality. No destructive osteolytic or osteoblastic lesion i s identified. There is scattered degenerative and osteoarthritic changes. Soft tissues:There is a fat-containing right inguinal hernia. Small intramuscular lipoma seen involvi ng the right transverse abdominis musculature on image 34 series 2 measuring 4 cm. IMPRESSION: 1. No CT expiration for the patient's abdominal pain. 2. Bosniak 2F cyst involving the left mid kidney. Follow-up CT or MR examination with and without con trast is recommended in 6-12 months to document stability. 3. Other chronic findings as above.
[2020-04-30] MEDS ORDERED: Ketorolac Tromethamine 30 MG/ML VIAL ONE (18:54)
== END 2020-04-30 19:11 | disposition home or self-care (01) ==
LOC: ERS 15:47
DX: R10.32 Left lower quadrant pain (principal); I10 Essential (primary) hypertension; M19.90 Unspecified osteoarthritis, unspecified site; F32.9 Major depressive disorder, single episode, unspecified; F17.210 Nicotine dependence, cigarettes, uncomplicated; Z79.899 Other long term (current) drug therapy
CPT/HCPCS: 36415; 74176; 74177; 80053; 81003; 83690; 85025; 96374; J1885; Q9967

== ENCOUNTER 2020-09-14 12:47 | Outpatient (CLI) | payer MEDICARE, MEDICAID ==
[~2020-09-14 12:47] MED LIST changes: -Iopamidol-370 76% 500 ML 1 ML ONE; +Magnevist 469MG/ML 20 ML VIAL ONE
== END 2020-09-14 12:48 | disposition home or self-care (01) ==
LOC: BICMRI 12:47
PROVIDERS: ATTEND Neurological Surgery
DX: M51.16 Intervertebral disc disorders with radiculopathy, lumbar region (principal)
CPT/HCPCS: 72158; 82565

== ENCOUNTER 2021-01-01 16:18 | Emergency (ER) | payer MEDICARE, MEDICAID ==
[2021-01-01] MEDS ORDERED: Lorazepam 2 MG/ML VIAL ONE (17:35)
[2021-01-01 19:06] LABS: #Basophils 0.1 thou/uL (0.0-0.2); #Eosinphils 0.4 thou/uL (0.0-0.7); #Lymphocytes 5.1 thou/uL (1.20-3.40); #Monocytes 1.7 thou/uL (0.11-0.59); #Neutrophils 8.7 thou/uL (1.40-6.50); %Basophils 0.7 % (0.0-1.0); %Eosinophils 2.7 % (0.0-10.0); %Monocytes 10.4 % (0.0-10.0); %Neutrophils 54.3 % (42.0-75.0); Hemoglobin 16.5 g/dL (14.0-18.0); Mean Corpuscular HGB CONC 34.8 g/dL (32.0-36.0); Mean Corpuscular Hemoglobin 32.5 pg (27.0-31.0); Mean Corpuscular Volume 93.3 fL (78.0-98.0); Mean Platelet Volume 6.9 fL (7.4-10.4); Platelet Count 290 thou/uL (130-400); RBC Distribution Width 12.6 % (11.5-14.5); Red Blood Cell (RBC) Count 5.09 mill/uL (4.70-6.10)
[2021-01-01 19:25] LABS: Acetaminophen Less than 6.0 mcg/mL (10.0-30.0); Alcohol Less than 10 mg/dL (Less than 10); Salicylate Less than 8.0 mg/dL (15.0-30.0)
[2021-01-01 19:26] LABS: ALT (SGPT) 35 U/L (8-55); AST (SGOT) 27 U/L (5-34); Albumin 4.2 g/dL (3.5-5.0); Alkaline Phosphatase 55 U/L (40-110); Anion Gap 12 mmol/L (10-20); BUN (Urea Nitrogen) 15 mg/dL (8.4-25.7); Bilirubin, Total 0.9 mg/dL (0.2-1.2); Calc. Creatinine Clearance 0 mL/min (70-130); Calcium 9.6 mg/dL (7.8-10.44); Carbon Dioxide 23 mmol/L (22-29); Chloride 109 mmol/L (98-107); Globulin 3.3 g/dL (2.4-3.5); Glucose 105 mg/dL (70-105); Potassium 3.8 mmol/L (3.5-5.1); Protein, Total 7.5 g/dL (6.0-8.3); Sodium 140 mmol/L (136-145)
[2021-01-01 19:57] LABS: Bilirubin Negative (Negative); Blood, Urine Negative (Negative); Clarity Clear (Clear); Glucose, Urine (Dipstick) Normal (Negative); Ketone, Urine Negative (Negative); Leukocyte Negative Leu/uL (Negative); Nitrite Negative (Negative); Protein, Urine (Dipstick) 10 mg/dL (Neg-Trace); Specific Gravity, Urine 1.025 (1.002-1.036); Urobilinogen Normal mg/dL (Less than 2); pH, Urine 5.5 (5.0-9.0)
[2021-01-01 20:12] LABS: Amphetamine Not Detected (NotDetected); Benzodiazepine Screen Detected (NotDetected); Cocaine Metabolite Screen Not Detected (NotDetected); Medtox Reader # READER 4; Methamphetamine Detected (NotDetected); Opiate Screen Not Detected (NotDetected); Phencyclidine (PCP) Not Detected (NotDetected); THC/Cannabinoid Screen Detected (NotDetected)
[2021-01-01 20:13] LABS: Barbiturates Screen Not Detected (NotDetected); Medtox Control Line Valid? VALID (VALID); Methadone Not Detected (NotDetected); Oxycodone Screen Not Detected (NotDetected); Tricyclic Screen Not Detected (NotDetected)
[2021-01-01] MEDS ORDERED: diphenhydrAMINE 25 MG CAP ONE (23:38)
[2021-01-01] MEDS ORDERED: traZODone HCl 50 MG TAB ONE (23:38)
[2021-01-02] MEDS ORDERED: Nicotine 14 MG PATCH ONE (00:25)
[2021-01-02] MEDS ORDERED: Mag-Al 1200 mg/1200 mg/30 ML UDCUP ONE (03:09)
[2021-01-02] MEDS ORDERED: Lidocaine Viscous Sol 2% 15 ml UD Cup ONE (03:09)
[2021-01-02] MEDS ORDERED: Lisinopril 10 MG TAB ONE (09:32)
== END 2021-01-02 14:01 ==
LOC: ERS 16:18
DX: F15.150 Other stimulant abuse with stimulant-induced psychotic disorder with delusions (principal); I10 Essential (primary) hypertension; F17.210 Nicotine dependence, cigarettes, uncomplicated; Z79.899 Other long term (current) drug therapy
CPT/HCPCS: 36415; 51701; 80053; 80306; 80307; 81003; 84484; 85025; 93005; 96374; J2060; Q0163

== ENCOUNTER 2021-04-28 10:19 | Outpatient (CLI) | payer MEDICARE, MEDICAID | END 2021-04-28 10:20 | disposition home or self-care (01) | LOC: BICULT 10:19 | PROVIDERS: ATTEND Physician Assistant Medical | DX: K21.9 Gastro-esophageal reflux disease without esophagitis (principal); B18.2 Chronic viral hepatitis C; R10.13 Epigastric pain; Z86.010 Personal history of colon polyps; K76.89 Other specified diseases of liver | CPT/HCPCS: 76705 ==

== ENCOUNTER 2025-05-22 18:12 | Emergency (ER) | payer MEDICARE, MEDICAID ==
[2025-05-22 18:52] LABS: #Basophils 0.07 10x3/uL (0.0-0.2); #Eosinophils 0.37 10x3/uL (0.0-0.7); #Monocytes 1.01 10x3/uL (0.11-0.59); #Neutrophils 5.51 10x3/uL (1.40-6.50); %Basophils 0.6 % (0.0-1.0); %Eosinophils 3.4 % (0.0-10.0); %Lymphocytes 35.7 % (21.0-51.0); %Monocytes 9.3 % (0.0-10.0); %Neutrophils 50.6 % (42.0-75.0); Hematocrit 45.2 % (42.0-52.0); Hemoglobin 16.2 g/dL (14.0-18.0); Mean Corpuscular Hemoglobin 31.7 pg (27.0-31.0); Mean Corpuscular Volume 88.5 fL (78.0-98.0); Platelet Count 296 10x3/uL (130-400); Red Blood Cell (RBC) Count 5.11 mill/uL (4.70-6.10); White Blood Cell (WBC) Count 10.88 10x3/uL (4.8-10.8)
[2025-05-22 19:10] LABS: ALT (SGPT) 18 U/L (Less than 45); AST (SGOT) 28 U/L (11-34); Albumin 4.4 g/dL (3.1-4.5); Alkaline Phosphatase 61 U/L (40-110); Anion Gap 13 mmol/L (10-20); BUN (Urea Nitrogen) 15 mg/dL (8.4-25.7); Bilirubin, Total 0.4 mg/dL (0.3-1.2); Calc. Creatinine Clearance 0 mL/min (70-130); Calcium 10.4 mg/dL (7.8-10.44); Carbon Dioxide 26 mmol/L (22-29); Chloride 106 mmol/L (98-107); Globulin 3.1 g/dL (2.4-3.5); Glucose 109 mg/dL (70-105); Potassium 3.8 mmol/L (3.5-5.1); Sodium 141 mmol/L (136-145)
== END 2025-05-22 20:02 | disposition home or self-care (01) ==
LOC: ERS 18:12
DX: R07.9 Chest pain, unspecified (principal); F14.10 Cocaine abuse, uncomplicated; I10 Essential (primary) hypertension; F17.210 Nicotine dependence, cigarettes, uncomplicated; Z79.899 Other long term (current) drug therapy
CPT/HCPCS: 71045; 80053; 84484; 85025; 93005; J2060; 96374

== ENCOUNTER 2025-05-26 09:47 | Emergency (ER) | payer MEDICARE, MEDICAID ==
[2025-05-26] MEDS ORDERED: cloNIDine 0.1 MG TAB ONE (11:18)
== END 2025-05-26 11:25 | disposition home or self-care (01) ==
LOC: ERS 09:47
DX: I10 Essential (primary) hypertension (principal); F17.210 Nicotine dependence, cigarettes, uncomplicated; Z79.899 Other long term (current) drug therapy; Z13.6 Encounter for screening for cardiovascular disorders; Z12.2 Encounter for screening for malignant neoplasm of respiratory organs
CPT/HCPCS: 71271; 76706; 99283